=== PATIENT | female | born 1950 | race Two or more races ===

== ENCOUNTER 2018-04-12 20:54 | Emergency (ER) | payer MEDICARE, OTHER ==
[~2018-04-12] VITALS: Ht 160 cm; Wt 92.0 kg
[2018-04-12 21:34] LABS: GLUCOSE,POINT OF CARE 146 MG/DL (70-110)
[2018-04-12] MEDS ORDERED: CLOP75 PO (21:39)
[2018-04-12] MEDS ORDERED: CLON.2 PO (21:39)
[2018-04-12] MEDS ORDERED: GABA-529 PO (21:39)
[2018-04-12] MEDS ORDERED: ATOR40TA28 PO (21:39)
[2018-04-12] MEDS ORDERED: VALS40TA4 PO (21:39)
[2018-04-12] MEDS ORDERED: METO50 PO (21:39)
[2018-04-12] MEDS ORDERED: METF500T6 PO (21:39)
[2018-04-12] MEDS ORDERED: CYCL10 PO (21:39)
[2018-04-12] MEDS ORDERED: DULO30CA2 PO (21:39)
[2018-04-12] MEDS ORDERED: HYDR25TA PO (21:39)
[2018-04-12] MEDS ORDERED: ACET650T9 PO (21:39)
[2018-04-13] MEDS ORDERED: BENZOCAINE 10% 7 GM GEL TP ONE (00:45)
[2018-04-13 01:08] VITALS: BP 142/70
== END 2018-04-13 01:12 | disposition home or self-care (01) ==
LOC: EMS 20:56
DX: K12.0 Recurrent oral aphthae (principal); I10 Essential (primary) hypertension; E11.9 Type 2 diabetes mellitus without complications; E78.00 Pure hypercholesterolemia, unspecified; F32.9 Major depressive disorder, single episode, unspecified; Z88.5 Allergy status to narcotic agent; Z79.84 Long term (current) use of oral hypoglycemic drugs; Z79.899 Other long term (current) drug therapy
CPT/HCPCS: 99283

== ENCOUNTER 2019-06-06 08:21 | Inpatient (IN) | payer BC, MEDICARE ==
[~2019-06-06] VITALS: Ht 167.6 cm; Wt 91.7 kg
[~2019-06-06 08:21] MED LIST: ACET650T9 PO; ATOR40TA28 PO; CLON.2 PO; CLOP75TA3 PO; CYCL10 PO; DULO30CA2 PO; GABA-529 PO; HYDR25TA PO; METF-960 PO; METO50 PO; VALS40TA4 PO
[2019-06-06 08:57] LABS: GLUCOSE,POINT OF CARE 96 MG/DL (70-110)
[2019-06-06 09:57] LABS: BASOPHILS % (AUTO) 3.5 % (0.0-2.0); HEMATOCRIT 45.5 % (36-46); HEMOGLOBIN 15.3 g/dL (12.0-16.0); LYMPHOCYTES # (AUTO) 5.7 K/uL (1.0-4.8); LYMPHOCYTES % (AUTO) 54.5 % (22.0-44.0); MEAN CORPUSCULAR HEMOGLOBIN 29.7 pg (26.0-34.0); MEAN CORPUSCULAR HGB CONC 33.7 G/dL (31.0-37.0); MEAN CORPUSCULAR VOLUME 88 fL (80-100); MONOCYTES # (AUTO) 0.4 K/uL (0.1-1.0); MONOCYTES % (AUTO) 4.2 % (2.0-9.0); NEUTROPHILS # (AUTO) 3.9 K/uL (1.8-7.7); NEUTROPHILS % (AUTO) 36.8 % (40.0-70.0); PLATELET COUNT (AUTO) 152 K/uL (150-450); RED BLOOD CELL COUNT(AUTO) 5.16 MIL/uL (4.00-5.20); RED CELL DISTRIBUTION WIDTH 14.5 % (11.5-14.5)
[2019-06-06 10:10] LABS: PROTHROMBIN TIME 10.3 SEC (9.4-11.6)
[2019-06-06] MEDS ORDERED: ASPIRIN 325 MG EC TABLET PO ONE (10:15)
[2019-06-06] MEDS ORDERED: NITROGLYCERIN 2% (1 GM=INCH) PACKET TP ONE (10:15)
[2019-06-06 10:18] LABS: APPEARANCE,URINE CLEAR (CLEAR); BILIRUBIN,URINE NEGATIVE (NEGATIVE); GLUCOSE, URINE (UA) NEGATIVE (NEGATIVE); KETONES,URINE NEGATIVE (NEGATIVE); LEUKOCYTE ESTERASE ,URINE TRACE (NEGATIVE); NITRATE,URINE NEGATIVE (NEGATIVE); OCCULT BLOOD,URINE NEGATIVE (NEGATIVE); PROTEIN,URINE NEGATIVE (NEGATIVE); UROBILINOGEN,URINE 0.2 mg/dL (<=1.0)
[2019-06-06 10:27] LABS: B-TYPE NATRIURETIC PEPTIDE 83 pg/mL (0-100)
[2019-06-06 10:29] LABS: BACTERIA,URINE None Seen /HPF (None Seen); RBC,URINE None Seen /HPF (0-2); SQUAMOUS EPITHELIAL CELL,UR Few /LPF (None Seen)
[2019-06-06 10:37] LABS: ANION GAP 7 mmol/L (8-16); CALCIUM, TOTAL 9.8 mg/dL (8.8-10.5); CARBON DIOXIDE 32 mmol/L (22-29); CHLORIDE 102 mmol/L (98-107); CREATININE 0.81 mg/dL (0.60-1.30); GLOMERULAR FILTR. RATE CALC > 60 mL/min (>60); GLUCOSE,RANDOM 110 mg/dL (70-110); POTASSIUM 3.6 mmol/L (3.5-5.1); SODIUM SERUM 141 mmol/L (136-145); UREA NITROGEN, BLOOD 11 mg/dL (7-18)
[2019-06-06 10:43] LABS: ALANINE AMINOTRANSFERASE 37 U/L (12-78); ALBUMIN 3.9 g/dL (3.4-5.0); ALKALINE PHOSPHATASE 76 U/L (46-116); ASPARTATE AMINOTRANSFERASE 17 U/L (15-37); BILIRUBIN,TOTAL 0.4 mg/dL (0.1-1.0); CREATINE KINASE, TOTAL ONLY 52 U/L (26-192); TOTAL PROTEIN, SERUM 7.9 g/dL (6.4-8.2)
[2019-06-06] MEDS ORDERED: 0.9% SODIUM CHLORIDE 10 ML SYRINGE IVP PRN (12:00)
[2019-06-06] MEDS ORDERED: ACETAMINOPHEN 325 MG TABLET PO PRN ×2 (12:00→12:30)
[2019-06-06] MEDS ORDERED: DEXTROSE 50%-WATER 25 GM/50 ML SYRINGE IVP PRN (12:30)
[2019-06-06] MEDS ORDERED: MAGNESIUM HYDROXIDE SUSPENSION 30 ML UDCUP PO PRN (12:30)
[2019-06-06] MEDS: CloNIDine HCL 0.2 MG TABLET PO SCH ×2 (13:04→20:15)
[2019-06-06] MEDS ORDERED: NIFEdipine 30 MG ER TABLET PO ONE (13:45)
[2019-06-06] MEDS: ATORVASTATIN CALCIUM 20 MG TABLET PO SCH (14:05)
[2019-06-06 14:39] VITALS: BP 161/83
[2019-06-06 16:12] VITALS: BP 129/66
[2019-06-06] MEDS: HEPARIN SODIUM,PORCINE 5,000 UNITS/ML VIAL SQ SCH (16:21)
[2019-06-06] MEDS ORDERED: INFLUENZA VIRUS VACCINE QVS 2019-20 (3YR+)/PF 60 MCG/0.5 ML SYRINGE IM ONE (16:45)
[2019-06-06] MEDS: INSULIN LISPRO 100 UNITS/ML SQ PRN (16:59)
[2019-06-06 20:12] VITALS: BP 132/61
[2019-06-06] MEDS: DOCUSATE SODIUM 100 MG CAPSULE PO SCH (20:15)
[2019-06-06 20:41] LABS: GLUCOMETER DEV NAME(LOC) 5N.1; GLUCOSE,POINT OF CARE 159 MG/DL (70-110)
[2019-06-07] MEDS: HEPARIN SODIUM,PORCINE 5,000 UNITS/ML VIAL SQ SCH ×2 (00:09→08:08)
[2019-06-07 00:11] LABS: GLUCOMETER DEV NAME(LOC) 5N.2; GLUCOSE,POINT OF CARE 141 MG/DL (70-110)
[2019-06-07 00:42] VITALS: BP 129/76
[2019-06-07 04:33] VITALS: BP 135/68
[2019-06-07 08:05] VITALS: BP 167/79
[2019-06-07] MEDS: CloNIDine HCL 0.2 MG TABLET PO SCH (08:08)
[2019-06-07] MEDS: DOCUSATE SODIUM 100 MG CAPSULE PO SCH (08:08)
[2019-06-07] MEDS: ATORVASTATIN CALCIUM 20 MG TABLET PO SCH (08:08)
[2019-06-07 08:56] LABS: BASOPHILS % (AUTO) 0.6 % (0.0-2.0); EOSINOPHILS % (AUTO) 1.4 % (1.0-6.0); HEMATOCRIT 44.8 % (36-46); HEMOGLOBIN 15.3 g/dL (12.0-16.0); LYMPHOCYTES # (AUTO) 4.3 K/uL (1.0-4.8); LYMPHOCYTES % (AUTO) 56.3 % (22.0-44.0); MEAN CORPUSCULAR HEMOGLOBIN 29.9 pg (26.0-34.0); MEAN CORPUSCULAR HGB CONC 34.1 G/dL (31.0-37.0); MEAN CORPUSCULAR VOLUME 88 fL (80-100); MONOCYTES # (AUTO) 0.4 K/uL (0.1-1.0); MONOCYTES % (AUTO) 5.8 % (2.0-9.0); NEUTROPHILS # (AUTO) 2.7 K/uL (1.8-7.7); NEUTROPHILS % (AUTO) 35.9 % (40.0-70.0); PLATELET COUNT (AUTO) 155 K/uL (150-450); RED CELL DISTRIBUTION WIDTH 14.5 % (11.5-14.5)
[2019-06-07] MEDS ORDERED: ASPIRIN 81 MG CHEWABLE TABLET PO SCH (09:00)
[2019-06-07 09:14] LABS: ALANINE AMINOTRANSFERASE 43 U/L (12-78); ALBUMIN 3.4 g/dL (3.4-5.0); ALKALINE PHOSPHATASE 65 U/L (46-116); ANION GAP 9 mmol/L (8-16); ASPARTATE AMINOTRANSFERASE 20 U/L (15-37); BILIRUBIN,TOTAL 0.5 mg/dL (0.1-1.0); CARBON DIOXIDE 29 mmol/L (22-29); CHLORIDE 105 mmol/L (98-107); CREATININE 0.62 mg/dL (0.60-1.30); GLOMERULAR FILTR. RATE CALC > 60 mL/min (>60); GLUCOSE,RANDOM 104 mg/dL (70-110); SODIUM SERUM 143 mmol/L (136-145); TOTAL PROTEIN, SERUM 6.7 g/dL (6.4-8.2); UREA NITROGEN, BLOOD 11 mg/dL (7-18)
[2019-06-07 10:55] LABS: GLUCOMETER DEV NAME(LOC) 5S.1; GLUCOSE,POINT OF CARE 108 MG/DL (70-110)
[2019-06-07 11:10] VITALS: BP 119/62
[2019-06-07] MEDS ORDERED: NIFE30TA98 PO (12:06)
[2019-06-07] MEDS: INSULIN LISPRO 100 UNITS/ML SQ PRN (12:12)
[2019-06-07] MEDS ORDERED: PNEUMOCOCCAL VACCINE POLYVALENT 0.5 ML VIAL [PPSV23] IM ONE (12:30)
[2019-06-08 03:55] LABS: GLUCOMETER DEV NAME(LOC) 5N.2; GLUCOSE,POINT OF CARE 143 MG/DL (70-110)
== END 2019-06-07 13:40 | disposition home or self-care (01) | DRG 313 ==
LOC: EMS 08:26 → 5S 13:56
PROVIDERS: ADMIT Internal Medicine; ATTEND Internal Medicine
PROC: 3E02340 Introduction of Influenza Vaccine into Muscle, Percutaneous Approach (ICD-10-PCS; principal; 2019-06-06)
PROC: 3E0234Z Introduction of Serum, Toxoid and Vaccine into Muscle, Percutaneous Approach (ICD-10-PCS; 2019-06-07)
DX: R07.89 Other chest pain (principal); E11.40 Type 2 diabetes mellitus with diabetic neuropathy, unspecified; E66.01 Morbid (severe) obesity due to excess calories; E78.00 Pure hypercholesterolemia, unspecified; E78.5 Hyperlipidemia, unspecified; I10 Essential (primary) hypertension; I25.10 Atherosclerotic heart disease of native coronary artery without angina pectoris; G89.29 Other chronic pain; M19.90 Unspecified osteoarthritis, unspecified site; F32.9 Major depressive disorder, single episode, unspecified; I25.2 Old myocardial infarction; Z86.73 Personal history of transient ischemic attack (TIA), and cerebral infarction without residual deficits; Z90.710 Acquired absence of both cervix and uterus; Z88.5 Allergy status to narcotic agent; Z79.899 Other long term (current) drug therapy; Z23 Encounter for immunization
CPT/HCPCS: 87086; 90686; 90732; 93005; 93306; J1644

== ENCOUNTER 2019-10-30 16:02 | Inpatient (IN) | payer MEDICARE, MEDICAID ==
[~2019-10-30] VITALS: Ht 160 cm; Wt 87.4 kg
[~2019-10-30 16:02] MED LIST changes: -CLON.2 PO; +CLON0.2T2 PO; -CYCL10 PO; -HYDR25TA PO; -METO50 PO; +NIFE30TA98 PO
[2019-10-30] MEDS ORDERED: HYDR-4174 PO (16:09)
[2019-10-30] MEDS ORDERED: ROSU20TA23 PO (16:09)
[2019-10-30] MEDS ORDERED: CARV3.1231 PO (16:09)
[2019-10-30] MEDS ORDERED: CLOP75TA32 PO (16:09)
[2019-10-30 16:24] LABS: GLUCOSE,POINT OF CARE 153 MG/DL (70-110)
[2019-10-30 16:58] LABS: BASOPHILS % (AUTO) 0.5 % (0.0-2.0); EOSINOPHILS % (AUTO) 1.9 % (1.0-6.0); HEMATOCRIT 40.3 % (36-46); HEMOGLOBIN 13.2 g/dL (12.0-16.0); LYMPHOCYTES # (AUTO) 3.8 K/uL (1.0-4.8); LYMPHOCYTES % (AUTO) 54.6 % (22.0-44.0); MEAN CORPUSCULAR HEMOGLOBIN 29.2 pg (26.0-34.0); MEAN CORPUSCULAR HGB CONC 32.7 G/dL (31.0-37.0); MEAN CORPUSCULAR VOLUME 89 fL (80-100); MONOCYTES # (AUTO) 0.5 K/uL (0.1-1.0); MONOCYTES % (AUTO) 6.6 % (2.0-9.0); NEUTROPHILS # (AUTO) 2.6 K/uL (1.8-7.7); NEUTROPHILS % (AUTO) 36.4 % (40.0-70.0); PLATELET COUNT (AUTO) 147 K/uL (150-450); RED BLOOD CELL COUNT(AUTO) 4.52 MIL/uL (4.00-5.20); RED CELL DISTRIBUTION WIDTH 14.3 % (11.5-14.5)
[2019-10-30 17:02] LABS: PROTHROMBIN TIME 10.6 SEC (9.4-11.6)
[2019-10-30 17:10] LABS: ANION GAP 7 mmol/L (8-16); CALCIUM, TOTAL 9.1 mg/dL (8.8-10.5); CARBON DIOXIDE 29 mmol/L (22-29); CHLORIDE 102 mmol/L (98-107); GLOMERULAR FILTR. RATE CALC > 60 mL/min (>60); GLUCOSE,RANDOM 142 mg/dL (70-110); SODIUM SERUM 138 mmol/L (136-145); UREA NITROGEN, BLOOD 15 mg/dL (7-18)
[2019-10-30 17:13] LABS: ALANINE AMINOTRANSFERASE 42 U/L (12-78); ALBUMIN 3.5 g/dL (3.4-5.0); ALKALINE PHOSPHATASE 71 U/L (46-116); ASPARTATE AMINOTRANSFERASE 17 U/L (15-37); BILIRUBIN,TOTAL 0.2 mg/dL (0.1-1.0); CREATINE KINASE, TOTAL ONLY 57 U/L (26-192); TOTAL PROTEIN, SERUM 6.9 g/dL (6.4-8.2)
[2019-10-30 17:18] LABS: B-TYPE NATRIURETIC PEPTIDE 155 pg/mL (0-100)
[2019-10-30] MEDS ORDERED: ACETAMINOPHEN 325 MG TABLET PO PRN (20:30)
[2019-10-30] MEDS ORDERED: ACETAMINOPHEN 325 MG TABLET PO ONE (20:30)
[2019-10-30] MEDS ORDERED: CLOPIDOGREL BISULFATE 75 MG TABLET PO ONE (20:30)
[2019-10-30] MEDS ORDERED: 0.9% SODIUM CHLORIDE 10 ML SYRINGE IVP PRN (20:30)
[2019-10-30 20:37] LABS: APPEARANCE,URINE CLEAR (CLEAR); BILIRUBIN,URINE NEGATIVE (NEGATIVE); GLUCOSE, URINE (UA) NEGATIVE (NEGATIVE); KETONES,URINE NEGATIVE (NEGATIVE); LEUKOCYTE ESTERASE ,URINE SMALL (NEGATIVE); NITRATE,URINE NEGATIVE (NEGATIVE); OCCULT BLOOD,URINE NEGATIVE (NEGATIVE); PROTEIN,URINE NEGATIVE (NEGATIVE); UROBILINOGEN,URINE 0.2 mg/dL (<=1.0)
[2019-10-30 21:06] LABS: BACTERIA,URINE None Seen /HPF (None Seen); RBC,URINE None Seen /HPF (0-2); SQUAMOUS EPITHELIAL CELL,UR Few /LPF (None Seen)
[2019-10-30 21:50] VITALS: BP 143/68
[2019-10-31 00:58] VITALS: BP 142/64
[2019-10-31] MEDS ORDERED: ONDANSETRON HCL 4 MG/2 ML VIAL IVP PRN (02:30)
[2019-10-31] MEDS ORDERED: ZOLPIDEM TARTRATE 10 MG TABLET PO PRN (02:30)
[2019-10-31] MEDS ORDERED: NITROGLYCERIN 0.4 MG SUBLINGUAL TABLET #25 SL PRN (02:30)
[2019-10-31 04:46] VITALS: BP 144/70
[2019-10-31] MEDS: NITROGLYCERIN 2% (1 GM=INCH) PACKET TP SCH ×4 (06:00→23:36)
[2019-10-31] MEDS: ACETAMINOPHEN 325 MG TABLET PO PRN ×2 (06:00→20:10)
[2019-10-31 06:51] LABS: BASOPHILS % (AUTO) 1.3 % (0.0-2.0); EOSINOPHILS % (AUTO) 1.7 % (1.0-6.0); HEMOGLOBIN 13.4 g/dL (12.0-16.0); LYMPHOCYTES # (AUTO) 4.3 K/uL (1.0-4.8); LYMPHOCYTES % (AUTO) 55.9 % (22.0-44.0); MEAN CORPUSCULAR HEMOGLOBIN 29.2 pg (26.0-34.0); MEAN CORPUSCULAR HGB CONC 32.6 G/dL (31.0-37.0); MEAN CORPUSCULAR VOLUME 90 fL (80-100); MONOCYTES # (AUTO) 0.5 K/uL (0.1-1.0); MONOCYTES % (AUTO) 6.1 % (2.0-9.0); NEUTROPHILS # (AUTO) 2.7 K/uL (1.8-7.7); PLATELET COUNT (AUTO) 146 K/uL (150-450); RED BLOOD CELL COUNT(AUTO) 4.58 MIL/uL (4.00-5.20); RED CELL DISTRIBUTION WIDTH 14.3 % (11.5-14.5)
[2019-10-31 07:13] LABS: ALANINE AMINOTRANSFERASE 40 U/L (12-78); ALBUMIN 3.4 g/dL (3.4-5.0); ALKALINE PHOSPHATASE 62 U/L (46-116); ANION GAP 5 mmol/L (8-16); ASPARTATE AMINOTRANSFERASE 18 U/L (15-37); BILIRUBIN,TOTAL 0.4 mg/dL (0.1-1.0); CALCIUM, TOTAL 8.6 mg/dL (8.8-10.5); CARBON DIOXIDE 30 mmol/L (22-29); CHLORIDE 106 mmol/L (98-107); CREATININE 0.81 mg/dL (0.60-1.30); GLOMERULAR FILTR. RATE CALC > 60 mL/min (>60); GLUCOSE,RANDOM 100 mg/dL (70-110); POTASSIUM 3.6 mmol/L (3.5-5.1); SODIUM SERUM 141 mmol/L (136-145); TOTAL PROTEIN, SERUM 6.7 g/dL (6.4-8.2); UREA NITROGEN, BLOOD 11 mg/dL (7-18)
[2019-10-31 07:27] VITALS: BP 148/65
[2019-10-31] MEDS: ASPIRIN 81 MG EC TABLET PO SCH (09:57)
[2019-10-31] MEDS: DOCUSATE SODIUM 100 MG CAPSULE PO SCH (09:57)
[2019-10-31 11:45] VITALS: BP 160/76
[2019-10-31] MEDS ORDERED: CLON0.3T PO (13:09)
[2019-10-31] MEDS: ROSUVASTATIN CALCIUM 20 MG TABLET PO SCH (15:46)
[2019-10-31] MEDS: CLOPIDOGREL BISULFATE 75 MG TABLET PO SCH (15:46)
[2019-10-31] MEDS: CARVEDILOL 3.125 MG TABLET PO SCH (15:46)
[2019-10-31 16:12] VITALS: BP 150/77
[2019-10-31 20:51] VITALS: BP 143/58
[2019-11-01] VITALS (8 sets, daily range): BP systolic 107–183; BP diastolic 45–82
[2019-11-01] MEDS: ACETAMINOPHEN 325 MG TABLET PO PRN ×2 (00:50→11:40)
[2019-11-01] MEDS: NITROGLYCERIN 2% (1 GM=INCH) PACKET TP SCH ×3 (05:59→18:00)
[2019-11-01 07:11] LABS: BASOPHILS % (AUTO) 1.1 % (0.0-2.0); EOSINOPHILS % (AUTO) 2.1 % (1.0-6.0); HEMATOCRIT 46.6 % (36-46); HEMOGLOBIN 15.5 g/dL (12.0-16.0); LYMPHOCYTES # (AUTO) 4.3 K/uL (1.0-4.8); LYMPHOCYTES % (AUTO) 51.1 % (22.0-44.0); MEAN CORPUSCULAR HEMOGLOBIN 29.7 pg (26.0-34.0); MEAN CORPUSCULAR HGB CONC 33.2 G/dL (31.0-37.0); MEAN CORPUSCULAR VOLUME 90 fL (80-100); MONOCYTES # (AUTO) 0.5 K/uL (0.1-1.0); MONOCYTES % (AUTO) 6.1 % (2.0-9.0); NEUTROPHILS # (AUTO) 3.3 K/uL (1.8-7.7); NEUTROPHILS % (AUTO) 39.6 % (40.0-70.0); PLATELET COUNT (AUTO) 154 K/uL (150-450); RED CELL DISTRIBUTION WIDTH 14.4 % (11.5-14.5)
[2019-11-01 07:36] LABS: ANION GAP 6 mmol/L (8-16); CALCIUM, TOTAL 9.5 mg/dL (8.8-10.5); CARBON DIOXIDE 30 mmol/L (22-29); CHLORIDE 104 mmol/L (98-107); CREATININE 0.87 mg/dL (0.60-1.30); GLOMERULAR FILTR. RATE CALC > 60 mL/min (>60); GLUCOSE,RANDOM 101 mg/dL (70-110); SODIUM SERUM 140 mmol/L (136-145); UREA NITROGEN, BLOOD 12 mg/dL (7-18)
[2019-11-01] MEDS: DOCUSATE SODIUM 100 MG CAPSULE PO SCH (08:10)
[2019-11-01] MEDS: ROSUVASTATIN CALCIUM 20 MG TABLET PO SCH (08:10)
[2019-11-01] MEDS: CARVEDILOL 3.125 MG TABLET PO SCH (08:10)
[2019-11-01] MEDS: ASPIRIN 81 MG EC TABLET PO SCH (08:11)
[2019-11-01] MEDS: CLOPIDOGREL BISULFATE 75 MG TABLET PO SCH (08:30)
[2019-11-01] MEDS ORDERED: HydrALAZINE HCL 50 MG TABLET PO SCH (16:00)
[2019-11-01] MEDS ORDERED: ASPI-728 PO (16:33)
== END 2019-11-01 20:00 | disposition home or self-care (01) | DRG 206 ==
LOC: EMS 16:03 → 5N 20:00
PROVIDERS: ADMIT Internal Medicine; ATTEND Internal Medicine
DX: M94.0 Chondrocostal junction syndrome [Tietze] (principal); I24.9 Acute ischemic heart disease, unspecified; I10 Essential (primary) hypertension; E78.00 Pure hypercholesterolemia, unspecified; E11.9 Type 2 diabetes mellitus without complications; M19.90 Unspecified osteoarthritis, unspecified site; F32.9 Major depressive disorder, single episode, unspecified; E78.5 Hyperlipidemia, unspecified; Z86.73 Personal history of transient ischemic attack (TIA), and cerebral infarction without residual deficits; Z90.49 Acquired absence of other specified parts of digestive tract; Z90.710 Acquired absence of both cervix and uterus; Z88.6 Allergy status to analgesic agent; Z79.02 Long term (current) use of antithrombotics/antiplatelets
CPT/HCPCS: 70450; 93005; J2405

== ENCOUNTER 2020-05-04 14:30 | Inpatient (IN) | payer MEDICARE ==
[~2020-05-04] VITALS: Ht 160 cm; Wt 78.2 kg
[~2020-05-04 14:30] MED LIST changes: +ASPI-728 PO; -ATOR40TA28 PO; -CLON0.2T2 PO; +CLON0.3T PO; -CLOP75TA3 PO; +CLOP75TA32 PO; -DULO30CA2 PO; -GABA-529 PO; +HYDR-4174 PO; +ISOS20TA7 PO; -METF-960 PO; -NIFE30TA98 PO; +ROSU20TA23 PO; -VALS40TA4 PO
[2020-05-04] MEDS ORDERED: LACT30L PO (14:38)
[2020-05-04] MEDS ORDERED: FURO20 PO (14:38)
[2020-05-04] MEDS ORDERED: LISI-660 PO (14:38)
[2020-05-04] MEDS ORDERED: ALEN10TA33 PO (14:38)
[2020-05-04] MEDS ORDERED: METF-960 PO (14:38)
[2020-05-04] MEDS ORDERED: ALEN70TA65 PO (15:53)
[2020-05-04] MEDS ORDERED: 0.9% SODIUM CHLORIDE 10 ML SYRINGE IVP PRN (16:00)
[2020-05-04 16:45] LABS: BASOPHILS % (AUTO) 2.9 % (0.0-2.0); EOSINOPHILS % (AUTO) 0.7 % (1.0-6.0); HEMATOCRIT 43.2 % (36-46); HEMOGLOBIN 14.3 g/dL (12.0-16.0); LYMPHOCYTES # (AUTO) 3.9 K/uL (1.0-4.8); LYMPHOCYTES % (AUTO) 56.3 % (22.0-44.0); MEAN CORPUSCULAR HEMOGLOBIN 29.1 pg (26.0-34.0); MEAN CORPUSCULAR HGB CONC 33.1 G/dL (31.0-37.0); MEAN CORPUSCULAR VOLUME 88 fL (80-100); MONOCYTES # (AUTO) 0.5 K/uL (0.1-1.0); MONOCYTES % (AUTO) 6.8 % (2.0-9.0); NEUTROPHILS # (AUTO) 2.3 K/uL (1.8-7.7); NEUTROPHILS % (AUTO) 33.3 % (40.0-70.0); PLATELET COUNT (AUTO) 127 K/uL (150-450); RED BLOOD CELL COUNT(AUTO) 4.92 MIL/uL (4.00-5.20); RED CELL DISTRIBUTION WIDTH 14.8 % (11.5-14.5)
[2020-05-04 16:59] LABS: D-DIMER 0.96 mg/L FEU (0.00-0.50); PROTHROMBIN TIME 10.5 SEC (9.4-11.6)
[2020-05-04 17:02] LABS: ANION GAP 8 mmol/L (8-16); CALCIUM, TOTAL 8.9 mg/dL (8.8-10.5); CARBON DIOXIDE 26 mmol/L (22-29); CHLORIDE 98 mmol/L (98-107); GLUCOSE,RANDOM 117 mg/dL (70-110); POTASSIUM 3.8 mmol/L (3.5-5.1); SODIUM SERUM 132 mmol/L (136-145); UREA NITROGEN, BLOOD 11 mg/dL (7-18)
[2020-05-04 17:06] LABS: GLOMERULAR FILTR. RATE CALC > 60 mL/min (>60)
[2020-05-04 17:18] LABS: ALANINE AMINOTRANSFERASE 85 U/L (12-78); ALBUMIN 3.4 g/dL (3.4-5.0); ALKALINE PHOSPHATASE 67 U/L (46-116); ASPARTATE AMINOTRANSFERASE 39 U/L (15-37); BILIRUBIN,TOTAL 0.2 mg/dL (0.1-1.0); C-REACTIVE PROTEIN QUANT 3.62 mg/dL (0.00-0.30); CREATINE KINASE, TOTAL ONLY 45 U/L (26-192); FERRITIN 135 ng/mL (8-252); TOTAL PROTEIN, SERUM 7.6 g/dL (6.4-8.2)
[2020-05-04 17:19] LABS: B-TYPE NATRIURETIC PEPTIDE 114 pg/mL (0-100)
[2020-05-04] MEDS ORDERED: CloNIDine HCL 0.1 MG TABLET PO PRN (18:00)
[2020-05-04] MEDS ORDERED: POTASSIUM CHLORIDE 20 MEQ ER TABLET PO PRN (18:15)
[2020-05-04] MEDS: DEXAMETHASONE 2 MG TABLET PO SCH (18:15)
[2020-05-04] MEDS ORDERED: POTASSIUM CHL 10 MEQ/WATER 50 ML IV PRN (18:15)
[2020-05-04] MEDS ORDERED: ALBUTEROL SULFATE HFA 90 MCG/PUFF 8 GM INHALER IH PRN (18:15)
[2020-05-04] MEDS ORDERED: ACETAMINOPHEN 325 MG TABLET PO PRN (18:15)
[2020-05-04] MEDS ORDERED: DEXTROSE 50%-WATER 25 GM/50 ML SYRINGE IVP PRN (18:15)
[2020-05-04] MEDS ORDERED: AZITHROMYCIN 500 MG/NS 250 ML IV ONE (18:30)
[2020-05-04] MEDS ORDERED: DEXAMETHASONE SOD PHOS 4 MG/ML 5 ML VIAL IVP ONE (18:30)
[2020-05-04] MEDS: HydrALAZINE HCL 50 MG TABLET PO SCH (20:48)
[2020-05-04] MEDS: DOCUSATE SODIUM 100 MG CAPSULE PO SCH (20:48)
[2020-05-04 20:57] VITALS: BP 153/75
[2020-05-04] MEDS ORDERED: -PHARMACY VACCINE NOTE- MISC ONE (21:30)
[2020-05-04] MEDS: ROSUVASTATIN CALCIUM 20 MG TABLET PO SCH (21:52)
[2020-05-04 22:55] LABS: GLUCOMETER DEV NAME(LOC) 5S.2A; GLUCOSE,POINT OF CARE 164 MG/DL (70-110)
[2020-05-05] MEDS: HEPARIN SODIUM,PORCINE 5,000 UNITS/ML VIAL SQ SCH ×3 (00:03→15:56)
[2020-05-05 00:21] VITALS: BP 139/79
[2020-05-05 04:02] VITALS: BP 154/89
[2020-05-05] MEDS: BENZONATATE 100 MG CAPSULE PO PRN ×3 (06:30→21:46)
[2020-05-05 07:17] LABS: GLUCOMETER DEV NAME(LOC) 5S.2A; GLUCOSE,POINT OF CARE 153 MG/DL (70-110)
[2020-05-05 08:00] VITALS: BP 175/96
[2020-05-05] MEDS: DOCUSATE SODIUM 100 MG CAPSULE PO SCH ×2 (08:01→21:45)
[2020-05-05] MEDS: ASPIRIN 81 MG CHEWABLE TABLET PO SCH (08:01)
[2020-05-05] MEDS: FAMOTIDINE 20 MG TABLET PO SCH (08:01)
[2020-05-05] MEDS: DEXAMETHASONE 2 MG TABLET PO SCH (08:01)
[2020-05-05] MEDS: HydrALAZINE HCL 50 MG TABLET PO SCH ×2 (08:01→21:45)
[2020-05-05] MEDS: ONDANSETRON HCL 4 MG/2 ML VIAL IVP PRN (08:32)
[2020-05-05] MEDS ORDERED: SODIUM CHLORIDE 0.9% 1,000 ML IV ONE (09:15)
[2020-05-05] MEDS ORDERED: DEXAMETHASONE 4 MG TABLET PO SCH (09:15)
[2020-05-05] MEDS ORDERED: HYDR-2924 PO (09:31)
[2020-05-05] MEDS ORDERED: CLOP-31 PO (09:31)
[2020-05-05] MEDS: AmLODIPine BESYLATE 5 MG TABLET PO SCH (09:54)
[2020-05-05] MEDS: INSULIN LISPRO 100 UNITS/ML SQ PRN ×3 (12:50→21:50)
[2020-05-05] MEDS ORDERED: REMDESIVIR **INVESTIGATIONAL** 200 MG in SODIUM CHLORIDE 0.9% 210 ML IV ONE (13:00)
[2020-05-05 16:00] VITALS: BP 186/84
[2020-05-05] MEDS: CloNIDine HCL 0.1 MG TABLET PO SCH (17:19)
[2020-05-05 18:26] LABS: GLUCOMETER DEV NAME(LOC) 5N.3; GLUCOSE,POINT OF CARE 157 MG/DL (70-110)
[2020-05-05 18:27] LABS: GLUCOMETER DEV NAME(LOC) 5N.3; GLUCOSE,POINT OF CARE 142 MG/DL (70-110)
[2020-05-05 20:38] VITALS: BP 157/80
[2020-05-05] MEDS ORDERED: DEXAMETHASONE 4 MG TABLET PO ONE (21:45)
[2020-05-05] MEDS: ROSUVASTATIN CALCIUM 20 MG TABLET PO SCH (21:45)
[2020-05-05 22:20] LABS: GLUCOMETER DEV NAME(LOC) 5S.2A; GLUCOSE,POINT OF CARE 170 MG/DL (70-110)
[2020-05-06 00:21] VITALS: BP 142/75
[2020-05-06] MEDS: CloNIDine HCL 0.1 MG TABLET PO SCH ×4 (00:39→23:47)
[2020-05-06] MEDS: HEPARIN SODIUM,PORCINE 5,000 UNITS/ML VIAL SQ SCH ×4 (00:40→23:47)
[2020-05-06 04:42] VITALS: BP 158/85
[2020-05-06] MEDS: INSULIN LISPRO 100 UNITS/ML SQ PRN ×4 (06:17→21:15)
[2020-05-06] MEDS: BENZONATATE 100 MG CAPSULE PO PRN ×2 (06:19→21:13)
[2020-05-06 06:31] LABS: BASOPHILS % (AUTO) 1.1 % (0.0-2.0); EOSINOPHILS % (AUTO) 0 % (1.0-6.0); HEMATOCRIT 42.3 % (36-46); HEMOGLOBIN 14.4 g/dL (12.0-16.0); LYMPHOCYTES # (AUTO) 1.9 K/uL (1.0-4.8); LYMPHOCYTES % (AUTO) 27.5 % (22.0-44.0); MEAN CORPUSCULAR HEMOGLOBIN 29.8 pg (26.0-34.0); MEAN CORPUSCULAR VOLUME 88 fL (80-100); MONOCYTES # (AUTO) 0.3 K/uL (0.1-1.0); NEUTROPHILS # (AUTO) 4.6 K/uL (1.8-7.7); NEUTROPHILS % (AUTO) 66.4 % (40.0-70.0); PLATELET COUNT (AUTO) 155 K/uL (150-450); RED BLOOD CELL COUNT(AUTO) 4.82 MIL/uL (4.00-5.20); RED CELL DISTRIBUTION WIDTH 14.2 % (11.5-14.5)
[2020-05-06] MEDS: ONDANSETRON HCL 4 MG/2 ML VIAL IVP PRN (06:33)
[2020-05-06 07:22] LABS: ALANINE AMINOTRANSFERASE 81 U/L (12-78); ALBUMIN 3.1 g/dL (3.4-5.0); ALKALINE PHOSPHATASE 64 U/L (46-116); ANION GAP 8 mmol/L (8-16); ASPARTATE AMINOTRANSFERASE 34 U/L (15-37); BILIRUBIN,TOTAL 0.2 mg/dL (0.1-1.0); C-REACTIVE PROTEIN QUANT 2.27 mg/dL (0.00-0.30); CALCIUM, TOTAL 8.8 mg/dL (8.8-10.5); CARBON DIOXIDE 26 mmol/L (22-29); CHLORIDE 104 mmol/L (98-107); CREATININE 0.74 mg/dL (0.60-1.30); FERRITIN 143 ng/mL (8-252); GLUCOSE,RANDOM 161 mg/dL (70-110); LACTATE DEHYDROGENASE 193 U/L (81-234); POTASSIUM 3.5 mmol/L (3.5-5.1); SODIUM SERUM 138 mmol/L (136-145); TOTAL PROTEIN, SERUM 7.3 g/dL (6.4-8.2); UREA NITROGEN, BLOOD 13 mg/dL (7-18)
[2020-05-06 07:28] LABS: GLOMERULAR FILTR. RATE CALC > 60 mL/min (>60)
[2020-05-06] MEDS: DOCUSATE SODIUM 100 MG CAPSULE PO SCH ×2 (07:49→21:00)
[2020-05-06] MEDS: FAMOTIDINE 20 MG TABLET PO SCH (07:49)
[2020-05-06] MEDS: DEXAMETHASONE 2 MG TABLET PO SCH (07:49)
[2020-05-06] MEDS: ASPIRIN 81 MG CHEWABLE TABLET PO SCH (07:50)
[2020-05-06] MEDS: HydrALAZINE HCL 50 MG TABLET PO SCH ×2 (07:50→21:12)
[2020-05-06] MEDS: AmLODIPine BESYLATE 5 MG TABLET PO SCH (07:50)
[2020-05-06 08:00] VITALS: BP 174/79
[2020-05-06] MEDS ORDERED: MAGNESIUM HYDROXIDE SUSPENSION 30 ML UDCUP PO PRN (08:45)
[2020-05-06] MEDS ORDERED: BISACODYL 5 MG EC TABLET PO PRN (08:45)
[2020-05-06] MEDS ORDERED: POTASSIUM CHLORIDE 20 MEQ ER TABLET PO ONE (08:45)
[2020-05-06] MEDS ORDERED: AmLODIPine BESYLATE 5 MG TABLET PO ONE (08:45)
[2020-05-06] MEDS ORDERED: AmLODIPine BESYLATE 10 MG TABLET PO SCH (09:00)
[2020-05-06 10:22] VITALS: BP 137/84
[2020-05-06 11:46] LABS: GLUCOMETER DEV NAME(LOC) 5S.2A; GLUCOSE,POINT OF CARE 149 MG/DL (70-110)
[2020-05-06 11:46] LABS: GLUCOMETER DEV NAME(LOC) 5S.2A; GLUCOSE,POINT OF CARE 148 MG/DL (70-110)
[2020-05-06] MEDS ORDERED: SODIUM CHLORIDE 0.9% 250 ML IV ONE (14:17)
[2020-05-06] MEDS: REMDESIVIR **INVESTIGATIONAL** 100 MG in SODIUM CHLORIDE 0.9% 230 ML IV SCH (14:18)
[2020-05-06 15:50] VITALS: BP 144/75
[2020-05-06 17:56] LABS: GLUCOMETER DEV NAME(LOC) 5N.3; GLUCOSE,POINT OF CARE 171 MG/DL (70-110)
[2020-05-06 19:33] VITALS: BP 129/69
[2020-05-06] MEDS: ROSUVASTATIN CALCIUM 20 MG TABLET PO SCH (21:12)
[2020-05-07] VITALS: BP 141/64
[2020-05-07 04:05] VITALS: BP 126/61
[2020-05-07 07:52] LABS: ALANINE AMINOTRANSFERASE 66 U/L (12-78); ALBUMIN 3.2 g/dL (3.4-5.0); ALKALINE PHOSPHATASE 60 U/L (46-116); ANION GAP 4 mmol/L (8-16); ASPARTATE AMINOTRANSFERASE 23 U/L (15-37); BILIRUBIN,TOTAL 0.2 mg/dL (0.1-1.0); C-REACTIVE PROTEIN QUANT 1.16 mg/dL (0.00-0.30); CALCIUM, TOTAL 8.5 mg/dL (8.8-10.5); CARBON DIOXIDE 30 mmol/L (22-29); CHLORIDE 104 mmol/L (98-107); CREATININE 0.91 mg/dL (0.60-1.30); GLUCOSE,RANDOM 102 mg/dL (70-110); POTASSIUM 3.7 mmol/L (3.5-5.1); SODIUM SERUM 138 mmol/L (136-145); TOTAL PROTEIN, SERUM 7.1 g/dL (6.4-8.2); UREA NITROGEN, BLOOD 13 mg/dL (7-18)
[2020-05-07 07:53] LABS: GLOMERULAR FILTR. RATE CALC > 60 mL/min (>60)
[2020-05-07 08:00] VITALS: BP 176/86
[2020-05-07] MEDS: ASPIRIN 81 MG CHEWABLE TABLET PO SCH (08:21)
[2020-05-07] MEDS: DEXAMETHASONE 2 MG TABLET PO SCH (08:21)
[2020-05-07] MEDS: HydrALAZINE HCL 50 MG TABLET PO SCH (08:22)
[2020-05-07] MEDS: FAMOTIDINE 20 MG TABLET PO SCH (08:22)
[2020-05-07] MEDS: HEPARIN SODIUM,PORCINE 5,000 UNITS/ML VIAL SQ SCH ×2 (08:22→16:16)
[2020-05-07] MEDS: DOCUSATE SODIUM 100 MG CAPSULE PO SCH (08:22)
[2020-05-07] MEDS: CloNIDine HCL 0.1 MG TABLET PO SCH ×2 (08:22→16:16)
[2020-05-07] MEDS ORDERED: AmLODIPine BESYLATE 10 MG TABLET PO SCH (09:00)
[2020-05-07 11:44] LABS: GLUCOMETER DEV NAME(LOC) 5N.3; GLUCOSE,POINT OF CARE 141 MG/DL (70-110)
[2020-05-07 11:45] LABS: GLUCOMETER DEV NAME(LOC) 5N.3; GLUCOSE,POINT OF CARE 104 MG/DL (70-110)
[2020-05-07 12:00] VITALS: BP 149/79
[2020-05-07 12:07] LABS: FERRITIN 151 ng/mL (8-252)
[2020-05-07 12:19] LABS: GLUCOMETER DEV NAME(LOC) 5N.3; GLUCOSE,POINT OF CARE 137 MG/DL (70-110)
[2020-05-07] MEDS: BENZONATATE 100 MG CAPSULE PO PRN (12:26)
[2020-05-07] MEDS: REMDESIVIR **INVESTIGATIONAL** 100 MG in SODIUM CHLORIDE 0.9% 230 ML IV SCH (14:24)
[2020-05-07] MEDS ORDERED: BENZ200C53 PO (14:44)
[2020-05-07 16:00] VITALS: BP 153/62
== END 2020-05-07 17:20 | disposition home or self-care (01) | DRG 177 ==
LOC: EMS 14:34 → 5N 18:09
PROVIDERS: ADMIT Internal Medicine; ATTEND Internal Medicine
PROC: XW033E5 Introduction of Remdesivir Anti-infective into Peripheral Vein, Percutaneous Approach, New Technology Group 5 (ICD-10-PCS; principal; 2020-05-05)
DX: U07.1 COVID-19 (principal); J12.89 Other viral pneumonia; E66.01 Morbid (severe) obesity due to excess calories; I10 Essential (primary) hypertension; E78.00 Pure hypercholesterolemia, unspecified; E11.9 Type 2 diabetes mellitus without complications; I25.10 Atherosclerotic heart disease of native coronary artery without angina pectoris; Z86.73 Personal history of transient ischemic attack (TIA), and cerebral infarction without residual deficits; Z90.710 Acquired absence of both cervix and uterus; Z68.30 Body mass index [BMI] 30.0-30.9, adult; Z88.5 Allergy status to narcotic agent; Z79.899 Other long term (current) drug therapy; Z79.891 Long term (current) use of opiate analgesic; Z79.82 Long term (current) use of aspirin; Z90.49 Acquired absence of other specified parts of digestive tract; Z79.84 Long term (current) use of oral hypoglycemic drugs
CPT/HCPCS: 82728; 83605; 83615; 84145; 85379; 86140; 87040; 87426; 93005; J0456; J1100; J1644; J2405; J7030; J7050; J8540; 36415-L1; 36415-TC; 71045-TC; U0003-CS

== ENCOUNTER 2021-11-19 20:07 | Emergency (ER) | payer MEDICARE ==
[~2021-11-19] VITALS: Ht 157.5 cm; Wt 89.1 kg
[~2021-11-19 20:07] MED LIST changes: +ALEN70TA65 PO; +ASPI-1450 PO; -ASPI-728 PO; +BENZ200C53 PO; -CLOP75TA32 PO; +CLOP75TA60 PO; +FURO20 PO; -HYDR-4174 PO; +HYDR50TA36 PO; -ISOS20TA7 PO; +ISOSM20 PO; +LACT10SO10 PO; +LISI-892 PO; +METF-1211 PO; -ROSU20TA23 PO; +ROSU20TA73 PO
[2021-11-19 22:59] VITALS: BP 165/85
== END 2021-11-19 23:31 | disposition home or self-care (01) ==
LOC: EMS 20:08
DX: R51.9 Headache, unspecified (principal); I10 Essential (primary) hypertension; E11.9 Type 2 diabetes mellitus without complications; E78.00 Pure hypercholesterolemia, unspecified; Z88.5 Allergy status to narcotic agent; Z79.84 Long term (current) use of oral hypoglycemic drugs; Z79.899 Other long term (current) drug therapy
CPT/HCPCS: 70450; 93005; 99284

== ENCOUNTER 2023-07-17 16:32 | Emergency (ER) | payer MEDICARE ==
[~2023-07-17] VITALS: Ht 160 cm; Wt 86.4 kg
[~2023-07-17 16:32] MED LIST changes: -ACET650T9 PO; -ALEN70TA65 PO; -ASPI-1450 PO; -BENZ200C53 PO; +CALC-1038 PO; +CALCIUM ZINC PO; +CEPH-558 PO; +CHOL500013 PO; +CHOLESTYRAMINE MISC; -CLOP75TA60 PO; +CYCL-448 PO; +DIVA-112 PO; +GLUCOSAMINE PO; -ISOSM20 PO; +ISOSORBIDE PO; -LACT10SO10 PO; -LISI-892 PO; +LOSA-381 PO; +ROSU10TA72 PO
[2023-07-17] MEDS ORDERED: KETOROLAC TROMETHAMINE 60 MG/2 ML VIAL IM ONE (18:30)
[2023-07-17 19:44] LABS: CALCIUM, TOTAL 9.4 mg/dL (8.8-10.5); CREATININE 0.92 mg/dL (0.60-1.30); POTASSIUM 3.6 mmol/L (3.5-5.1)
[2023-07-17 19:49] LABS: EOSINOPHILS % (AUTO) 1.3 % (1.0-6.0); HEMATOCRIT 38.9 % (36-46); LYMPHOCYTES # (AUTO) 5.3 K/uL (1.0-4.8); LYMPHOCYTES % (AUTO) 56.1 % (22.0-44.0); MEAN CORPUSCULAR HEMOGLOBIN 29.9 pg (26.0-34.0); MEAN CORPUSCULAR HGB CONC 33.5 G/dL (31.0-37.0); MEAN CORPUSCULAR VOLUME 89 fL (80-100); MONOCYTES # (AUTO) 0.6 K/uL (0.1-1.0); MONOCYTES % (AUTO) 6.6 % (2.0-9.0); PLATELET COUNT (AUTO) 160 K/uL (150-450); RED BLOOD CELL COUNT(AUTO) 4.36 MIL/uL (4.00-5.20); RED CELL DISTRIBUTION WIDTH 13.9 % (11.5-14.5); WHITE BLOOD COUNT (AUTO) 9.5 K/uL (4.5-11.0)
[2023-07-17 19:50] LABS: TROPONIN I-HIGH SENSITIVITY 10 ng/L (<51)
[2023-07-17 19:51] LABS: ALBUMIN 3.2 g/dL (3.4-5.0); BILIRUBIN,TOTAL 0.2 mg/dL (0.1-1.0); TOTAL PROTEIN, SERUM 6.9 g/dL (6.4-8.2)
[2023-07-17] MEDS ORDERED: ONDANSETRON HCL 4 MG/2 ML VIAL IM ONE (21:00)
[2023-07-17] MEDS ORDERED: HYDROmorphone HCL 2 MG/ML SYRINGE IM ONE (21:00)
[2023-07-17] MEDS ORDERED: TRAM-559 PO (21:36)
[2023-07-17 21:58] VITALS: BP 188/82; PULSE 70; RESP 16; TEMP 98
== END 2023-07-17 22:01 | disposition home or self-care (01) ==
LOC: EMS 17:24
DX: G89.29 Other chronic pain (principal); M54.50 Low back pain, unspecified; R07.89 Other chest pain; M19.90 Unspecified osteoarthritis, unspecified site; F32.A Depression, unspecified; E11.9 Type 2 diabetes mellitus without complications; E78.00 Pure hypercholesterolemia, unspecified; I10 Essential (primary) hypertension; Z90.710 Acquired absence of both cervix and uterus; Z90.49 Acquired absence of other specified parts of digestive tract; Z88.5 Allergy status to narcotic agent
CPT/HCPCS: 99285; 71045; 80053; 84484; 85025; 36415; 93005; 96372; J1170; J1885; J2405

== ENCOUNTER → 2024-04-28 09:33 | Emergency (ER) | payer MEDICARE | END | disposition left against medical advice (07) | LOC: EMS 09:33 | DX: Z53.21 Procedure and treatment not carried out due to patient leaving prior to being seen by health care provider (principal) ==